=== PATIENT | female | born 1995 | race Caucasian/White ===

== ENCOUNTER 2020-01-30 20:50 | Inpatient (IN) | payer OTHER ==
[2020-01-30] MEDS ORDERED: Sodium Chloride 0.9% 10 ML Syringe FLUSH PRN (21:24)
[2020-01-30] MEDS ORDERED: Ondansetron 4 MG/2 ML SDV IVPUSH PRN (21:24)
[2020-01-30] MEDS ORDERED: Lidocaine 1% 50 ML MDV INJECT ONE (21:24)
[2020-01-30] MEDS ORDERED: Nalbuphine 10 MG/ML Syringe IVPUSH PRN (21:24)
[2020-01-30] MEDS ORDERED: Calcium Carbonate 500 MG Tab.Chew PO PRN (21:24)
[2020-01-30] MEDS ORDERED: Oxytocin/Lactated Ringers 10 UNIT/1,000 ML BAG IV SCH (21:30)
[2020-01-30] MEDS ORDERED: Lactated Ringers 1,000 ML IV SCH (21:30)
[2020-01-30] MEDS ORDERED: Bupivacaine/fentaNYL/NS 100 ML Bag EPIDUR PRN (21:40)
[2020-01-30] MEDS ORDERED: ePHEDrine 50 MG/ML SDV IVPUSH PRN (21:40)
[2020-01-30] MEDS ORDERED: diphenhydrAMINE 50 MG/ML SDV IVPUSH PRN (21:40)
[2020-01-30] MEDS ORDERED: fentaNYL 100 MCG/2 ML SDV EPIDUR PRN (21:40)
--- NOTE | 2020-01-30 22:43 | PCM.LDHP ---
L&D History of Present Illness - General Date of Service: 01/30/20 Admit Problem/Dx: Patient Status Order with Admit Dx/Problem 01/30/20 21:24 Patient Status [ADT] Routine Admission Diagnosis/Problem Admission Diagnosis/Problem - History of Present Illness Introduction:: 24 year old at 40w2d here in active labor. PNC in [place] but lives in [place]. Contractions started 4.5 hours prior to delivery and got stronger en route to [place] so made decision to stop here. On arrival 7 cm - Related Data Allergies/Adverse Reactions: Allergies Allergy/AdvReac Type Severity Reaction Status Date / Time adhesive Allergy Rash Verified 10/23/19 16:51 Home Medications: Home Meds Pnv No.95/Ferrous Fum/Folic AC [ Tablet] 1 each PO DAILY 10/23/19 [History] Social & Family History - Tobacco Use Smoking Status *Q: Former Smoker H&P Review of Systems - Review of Systems: Review Of Systems: See Below General: Reports: No Symptoms HEENT: Reports: No Symptoms Pulmonary: Reports: No Symptoms Cardiovascular: Reports: No Symptoms Gastrointestinal: Reports: No Symptoms Genitourinary: Reports: No Symptoms Musculoskeletal: Reports: No Symptoms Skin: Reports: No Symptoms Psychiatric: Reports: No Symptoms Neurological: Reports: No Symptoms Hematologic/Lymphatic: Reports: No Symptoms Immunologic: Reports: No Symptoms L&D Exam - Exam Exam: See Below - Vital Signs Weight: 79.379 kg - OB Specific Fundal Height In cm: 39 Contraction Intensity: Moderate Movement: Active Heart Tones: Present Heart Rate (FHR) Variability: Moderate (6-25 bmp) Presentation: Vertex - Ross Score Ross Score Cervix Position: Anterior Ross Score Consistency: Soft Ross Score Effacement: >80% Ross Score Dilation: > 5 cm Ross Score Infant's Station: -1 ,0 Ross Score Total: 12 - Exam General: Alert, Oriented HEENT: PERRLA, Conjunctiva Clear, EACs Clear, EOMI, Hearing Intact, Mucosa Moist & [place], Nares Patent, Normal Nasal Septum, Posterior Pharynx Clear, TMs Clear Neck: Supple, Trachea Midline Lungs: Clear to Auscultation, Normal Respiratory Effort Cardiovascular: Regular Rate, Regular Rhythm GI/Abdominal Exam: Normal Bowel Sounds, Soft, Non-Tender, No Organomegaly, No Distention, No Abnormal Bruit Rectal Exam: Normal Exam, Normal Rectal Tone Genitourinary: Normal external exam Back Exam: Normal Inspection, Full Range of Motion Extremities: Normal Inspection, Normal Range of Motion, Non-Tender, No Pedal Edema, Normal Capillary Refill Skin: Warm, Dry, Intact Neurological: Cranial Nerves Intact, Reflexes Equal Bilateral Psychiatric: Alert, Normal Affect, Normal Mood - Patient Data Lab Results Last 24 hrs: Laboratory Results - last 24 hr 01/30/20 Range/Units 21:40 WBC 19.43 H (3.98-10.04) K/mm3 RBC 3.84 L (3.98-5.22) M/mm3 Hgb 11.9 (11.2-15.7) gm/dl Hct 35.9 (34.1-44.9) % MCV 93.5 (79.4-94.8) fl MCH 31.0 (25.6-32.2) pg MCHC 33.1 (32.2-35.5) g/dl RDW Std Deviation 43.3 (36.4-46.3) fL Plt Count 237 (182-369) K/mm3 MPV 10.0 (9.4-12.3) fl Neut % (Auto) 88.8 H (34.0-71.1) % Lymph % (Auto) 4.9 L (19.3-51.7) % [place] % (Auto) 5.8 (4.7-12.5) % Eos % (Auto) 0.1 L (0.7-5.8) Baso % (Auto) 0.1 (0.1-1.2) % Neut # (Auto) 17.27 H (1.56-6.13) K/mm3 Lymph # (Auto) 0.95 L (1.18-3.74) K/mm3 Kern # (Auto) 1.13 H (0.24-0.36) K/mm3 Eos # (Auto) 0.01 L (0.04-0.36) K/mm3 Baso # (Auto) 0.02 (0.01-0.08) K/mm3 Manual Slide Review Abnormal smear Result Diagrams: 01/30/20 21:40 Problem List Initiated/Reviewed/Updated: Yes Orders Last 24hrs: Active Orders 24 hr Category Date Time Status Patient Status [ADT] Routine ADT 01/30/20 21:24 Active Activity as Tolerated [RC] PFP Care 01/30/20 21:24 Active Communication Order [RC] ASDIRECTED Care 01/30/20 21:24 Active Heart Tones [RC] ASDIRECTED Care 01/30/20 21:25 Active Non Stress Test [RC] PER UNIT ROUTINE Care 01/30/20 21:01 Active Notify Provider [RC] ASDIRECTED Care 01/30/20 21:40 Active Notify Provider [RC] PFP Care 01/30/20 21:24 Active Notify Provider [RC] PRN Care 01/30/20 21:24 Active Peripheral IV Care [RC] . DIRECTED Care 01/30/20 21:25 Active Urinary Catheter Assessment [RC] ASDIRECTED Care 01/30/20 21:24 Active Vital Signs [RC] PER UNIT ROUTINE Care 01/30/20 21:01 Active Regular Diet [DIET] Diet 01/30/20 Breakfast Active RAPID PLASMA REAGIN,RPR [CHEM] Routine Lab 01/30/20 21:40 Received Bupivacaine/fentaNYL/NS [fentaNYL/Bupivacaine/NS 2 MCG- Med 01/30/20 21:40 Active 0.125% 100 ML] 100 ml EPIDUR ASDIRECTED PRN Calcium Carbonate [Tums] Med 01/30/20 21:24 Active 1,000 mg PO Q2H PRN Lactated Ringers [Ringers, Lactated] 1,000 ml Med 01/30/20 21:30 Active IV ASDIRECTED Nalbuphine [Nubain] Med 01/30/20 21:24 Active 10 mg IVPUSH Q2H PRN Ondansetron [Zofran] Med 01/30/20 21:24 Active 4 mg IVPUSH Q4H PRN Oxytocin/Lactated Ringers [Pitocin in LR 10 Units/1,000 Med 01/30/20 21:30 Active ML] 10 unit in 1,000 ml IV .CONTINUOUS Sodium Chloride 0.9% [Saline Flush] Med 01/30/20 21:24 Active 10 ml FLUSH ASDIRECTED PRN diphenhydrAMINE [Benadryl] Med 01/30/20 21:40 Active 25 mg IVPUSH Q6H PRN ePHEDrine [ePHEDrine sulfate] Med 01/30/20 21:40 Active 5 mg IVPUSH ASDIRECTED PRN fentaNYL [Sublimaze] Med 01/30/20 21:40 Active 100 mcg EPIDUR Q3H PRN Electronic Heart Tones Ext w TOCO [WOMSER] Oth 01/30/20 21:24 Ordered Routine Electronic Heart Tones Internal [WOMSER] Per Unit Ot 01/30/20 21:24 Ordered Routine Peripheral IV Insertion Adult [OM.PC] Routine Oth 01/30/20 21:24 Ordered Resuscitation Status Routine Resus Stat 01/30/20 21:01 Ordered Medication Orders Calcium Carbonate/Glycine (Tums) 1,000 mg PO Q2H PRN PRN Reason: Indigestion Diphenhydramine HCl (Benadryl) 25 mg IVPUSH Q6H PRN PRN Reason: pruritis Ephedrine Sulfate (Ephedrine Sulfate) 5 mg IVPUSH ASDIRECTED PRN PRN Reason: Hypotension Fentanyl (Sublimaze) 100 mcg EPIDUR Q3H PRN PRN Reason: Pain Fentanyl/Bupivacaine HCl (Fentanyl/Bupivacaine/Ns 2 Mcg-0.125% 100 Ml) 100 ml EPIDUR ASDIRECTED PRN PRN Reason: Pain Lactated Ringer's (Ringers, Lactated) 1,000 mls @ 100 mls/hr IV ASDIRECTED STEVENSON Oxytocin/Lactated Ringer's (Pitocin In Lr 10 Units/1,000 Ml) 10 unit in 1,000 mls @ 100 mls/hr IV .CONTINUOUS STEVENSON; Protocol Nalbuphine HCl (Nubain) 10 mg IVPUSH Q2H PRN PRN Reason: Pain Ondansetron HCl (Zofran) 4 mg IVPUSH Q4H PRN PRN Reason: Nausea/Vomiting Sodium Chloride (Saline Flush) 10 ml FLUSH ASDIRECTED PRN PRN Reason: Keep Vein Open Assessment/Plan Comment:: Term labor Anticipate rapid
--- NOTE | 2020-01-30 22:48 | PCM.SN.2 ---
- Free Text/Narrative Note: Stage I - Patient presented in active labor. 7 cm. Progressed to complete with overall reassuring FHT. Stage II- of viable male. Weight 7#12. 8/9 APGARS at 2221. Head delivered in controlled manner over intact perineum. Body and shoulders atraumatically. Positive cry. Cord clamped and cut. Cord blood collected Stage III - of intact placenta. 3vc. Lidocaine given. Repair of 2nd degree laceration with 3-0 vicryl. EBL 200
[2020-01-30] MEDS ORDERED: Witch Hazel Medicated Pads 40/Jar TOP PRN (23:09)
[2020-01-30] MEDS ORDERED: Hydrocortisone Acetate 25 MG Supp RECTAL PRN (23:09)
[2020-01-30] MEDS ORDERED: Benzocaine/Menthol 20%-0.5% Spray 56 GM Canister TOP PRN (23:09)
[2020-01-30] MEDS: Ibuprofen 600 MG Tab PO PRN (23:21)
[2020-01-31] MEDS: Ibuprofen 600 MG Tab PO PRN (07:50)
[2020-01-31] MEDS: Docusate Sodium 100 MG Cap PO PRN (13:49)
[2020-02-01] MEDS: Ibuprofen 600 MG Tab PO PRN ×2 (03:57→11:55)
[2020-02-01] MEDS: Docusate Sodium 100 MG Cap PO PRN (03:57)
--- NOTE | 2020-02-01 07:08 | PCM.DCSUM1 ---
Discharge Summary - Hospital Course Diagnosis: Stroke: No - Discharge Data Discharge Date: 02/01/20 Discharge Disposition: Home, Self-Care 01 Condition: Good - Referral to Home Health Primary Care Physician: April Cameron MD - Patient Instructions Diet: Usual Diet as Tolerated Activity: No Strenuous Activities Activity, Other: pelvic rest Driving: May Drive Today Notify Provider of: Fever, Increased Pain, Swelling and Redness, Drainage, Nausea and/or Vomiting - Discharge Plan *PRESCRIPTION DRUG MONITORING PROGRAM REVIEWED*: No *COPY OF PRESCRIPTION DRUG MONITORING REPORT IN PATIENT SAMUEL: No Home Medications: Home Meds Pnv No.95/Ferrous Fum/Folic AC [ Tablet] 1 each PO DAILY 10/23/19 [History] - Discharge Summary/Plan Comment DC Time >30 min.: No - Patient Data Vitals - Most Recent: Last Vital Signs Temp 37.2 C 02/01/20 03:51 Pulse 83 02/01/20 03:51 Resp 15 02/01/20 03:51 BP 100/42 L 02/01/20 03:51 Pulse Ox 96 02/01/20 03:51 Weight - Most Recent: 79.379 kg I&O - Last 24 hours: Intake & Output 01/31/20 02/01/20 02/01/20 22:59 06:59 14:59 Intake Total 370 Balance 370 Med Orders - Current: Current Medications Benzocaine/Menthol (Dermoplast Pain Relief [place]) 0 gm TOP ASDIRECTED PRN PRN Reason: Perineal Comfort Measure Docusate Sodium (Colace) 100 mg PO BID PRN PRN Reason: Constipation Last Admin: 02/01/20 03:57 Dose: 100 mg Documented by: Hydrocortisone Acetate (Anucort-Hc) 25 mg RECTAL BID PRN PRN Reason: Hemorrhoid pain Ibuprofen (Motrin) 600 mg PO Q6H PRN PRN Reason: Mild pain or fever Last Admin: 02/01/20 03:57 Dose: 600 mg Documented by: Oswald Grey) 1 pad TOP ASDIRECTED PRN PRN Reason: Pain Discontinued Medications Calcium Carbonate/Glycine (Tums) 1,000 mg PO Q2H PRN PRN Reason: Indigestion Diphenhydramine HCl (Benadryl) 25 mg IVPUSH Q6H PRN PRN Reason: pruritis Ephedrine Sulfate (Ephedrine Sulfate) 5 mg IVPUSH ASDIRECTED PRN PRN Reason: Hypotension Fentanyl (Sublimaze) 100 mcg EPIDUR Q3H PRN PRN Reason: Pain Fentanyl/Bupivacaine HCl (Fentanyl/Bupivacaine/Ns 2 Mcg-0.125% 100 Ml) 100 ml EPIDUR ASDIRECTED PRN PRN Reason: Pain Lactated Ringer's (Ringers, Lactated) 1,000 mls @ 100 mls/hr IV ASDIRECTED STEVENSON Last Admin: 01/30/20 21:15 Dose: 999 mls/hr Documented by: Oxytocin/Lactated Ringer's (Pitocin In Lr 10 Units/1,000 Ml) 10 unit in 1,000 mls @ 100 mls/hr IV .CONTINUOUS STEVENSON; Protocol Last Infusion: 01/30/20 23:45 Dose: 150 mls/hr Documented by: Lidocaine HCl (Xylocaine 1%) 50 ml INJECT ONETIME ONE Stop: 01/30/20 21:25 Last Admin: 01/30/20 22:25 Dose: 50 ml Documented by: Nalbuphine HCl (Nubain) 10 mg IVPUSH Q2H PRN PRN Reason: Pain Ondansetron HCl (Zofran) 4 mg IVPUSH Q4H PRN PRN Reason: Nausea/Vomiting Sodium Chloride (Saline Flush) 10 ml FLUSH ASDIRECTED PRN PRN Reason: Keep Vein Open
== END 2020-02-01 11:55 | disposition home or self-care (01) | DRG 807 ==
LOC: JD.OB 20:51 → OBSVTOIN 22:21
PROVIDERS: ADMIT Obstetrics & Gynecology; ATTEND Obstetrics & Gynecology
PROC: 10E0XZZ Delivery of Products of Conception, External Approach (ICD-10-PCS; principal; 2020-01-30)
PROC: 0KQM0ZZ Repair Perineum Muscle, Open Approach (ICD-10-PCS; 2020-01-30)
DX: O48.0 Post-term pregnancy (principal); Z37.0 Single live birth; Z3A.40 40 weeks gestation of pregnancy; Z87.891 Personal history of nicotine dependence; O70.1 Second degree perineal laceration during delivery; Z20.828 Contact with and (suspected) exposure to other viral communicable diseases
CPT/HCPCS: 36415; 59025; 59409; 85025; 86592; A9270-GY; J2001; J2590; J7120; U0002